=== PATIENT | female | born 1945 | race Caucasian/White ===

== ENCOUNTER 2024-08-16 22:24 | Emergency (ER) | payer BC, MEDICAID ==
[~2024-08-16] VITALS: Ht 154.9 cm; Wt 73.0 kg
[~2024-08-16 22:24] MED LIST: AMLO5TAB88 MT; ASPI-1497 MT; ATOR40TA70 MT; CIPR-263 MT; CLOP75TA33 MT; LISI20TA31 MT; MECL-299 MT; METF500S9 PO; PANT20TA17 PO
[2024-08-16 22:30] VITALS: BP 102/63; TEMP 98.3; O2SAT 98
[2024-08-16 23:25] LABS: BASOPHILS % 0.8 % (0.0-2.0); EOSINOPHILS % 2.9 % (0.0-5.0); HEMATOCRIT. 40.2 % (36.0-48.0); HEMOGLOBIN. 13.6 g/dL (12.0-16.0); LYMPHOCYTES % 29.1 % (20.0-50.0); MEAN CORPUSCULAR HEMOGLOBIN 31.7 pg (28.0-32.0); MEAN CORPUSCULAR HGB CONC 33.7 g/dL (31.0-37.0); MEAN CORPUSCULAR VOLUME 94.2 fL (81.0-99.0); MEAN PLATELET VOLUME 7.5 fl (7.4-10.4); MONOCYTES % 9.6 % (2.0-8.0); NEUTROPHILS % 57.6 % (40.0-76.0); PLATELET 454 x1000/uL (130-400); RED BLOOD CELL COUNT 4.27 mill/uL (4.2-5.4); RED CELL DISTRIBUTION WIDTH 13.3 % (11.6-14.6)
[2024-08-16 23:30] LABS: CHLORIDE 105 mEq/L (98-107); INR 0.9; POTASSIUM 3.7 mEq/L (3.5-5.1); PROTHROMBIN TIME 10.6 sec (9.6-11.0); SODIUM 138 mEq/L (136-145)
[2024-08-16 23:31] LABS: CALCIUM 9.5 mg/dL (8.7-10.4); CARBON DIOXIDE 24 mEq/L (21-32)
[2024-08-16 23:36] LABS: CREATININE 0.8 mg/dL (0.6-1.0); GLUCOSE 151 mg/dL (70-105); UREA NITROGEN BLOOD 10 mg/dL (9-23)
[2024-08-17] MEDS: IOHEXOL-350 100 ML BOTTLE ONE (05:23)
[2024-08-17 06:52] VITALS: PULSE 92; RESP 18
== END 2024-08-17 06:57 | disposition home or self-care (01) ==
LOC: ER 22:24
DX: M54.2 Cervicalgia (principal); R20.2 Paresthesia of skin; E78.00 Pure hypercholesterolemia, unspecified; I10 Essential (primary) hypertension; Z86.73 Personal history of transient ischemic attack (TIA), and cerebral infarction without residual deficits; Z88.1 Allergy status to other antibiotic agents; Z79.899 Other long term (current) drug therapy
CPT/HCPCS: 99291; 70450; 80048; 85025; 85610; 36415; 93005; 70496; 70498; Q9967

== ENCOUNTER 2025-04-13 15:02 | Emergency (ER) | payer BC, MEDICAID ==
[~2025-04-13] VITALS: Ht 165.1 cm; Wt 68.0 kg
[2025-04-13 15:06] VITALS: O2SAT 99
[2025-04-13 15:58] LABS: BASOPHILS % 1.0 % (0.0-2.0); EOSINOPHILS % 1.3 % (0.0-5.0); HEMATOCRIT. 37.7 % (36.0-48.0); HEMOGLOBIN. 13.0 g/dL (12.0-16.0); LYMPHOCYTES % 29.2 % (20.0-50.0); MEAN PLATELET VOLUME 7.0 fl (7.4-10.4); MONOCYTES % 6.7 % (2.0-8.0); NEUTROPHILS % 61.8 % (40.0-76.0); PLATELET 368 x1000/uL (130-400); RED BLOOD CELL COUNT 4.07 mill/uL (4.2-5.4); RED CELL DISTRIBUTION WIDTH 13.5 % (11.6-14.6)
[2025-04-13 16:12] LABS: CREATININE 0.7 mg/dL (0.6-1.0); UREA NITROGEN BLOOD 11 mg/dL (9-23)
[2025-04-13] MEDS: MECLIZINE 25MG TABLET PO SCH (16:15)
[2025-04-13] MEDS: ACETAMINOPHEN 500MG TABLET PO ONE (16:26)
[2025-04-13] MEDS: MECLIZINE 25MG TABLET PO ONE (16:27)
[2025-04-13] MEDS: KETOROLAC 30MG/ML VIAL IM ONE (16:30)
[2025-04-13 17:53] VITALS: BP 149/74; PULSE 91; RESP 16; TEMP 37.1; O2SAT 98
[2025-04-13] MEDS ORDERED: MECL-299 MT (18:05)
== END 2025-04-13 18:19 | disposition home or self-care (01) ==
LOC: ER 15:02
DX: G44.209 Tension-type headache, unspecified, not intractable (principal); E78.00 Pure hypercholesterolemia, unspecified; I10 Essential (primary) hypertension; Z79.899 Other long term (current) drug therapy; Z86.73 Personal history of transient ischemic attack (TIA), and cerebral infarction without residual deficits; Z88.1 Allergy status to other antibiotic agents
CPT/HCPCS: 99284; 70450; 80048; 85025; 36415; J8597; J1885